=== PATIENT | female | born 1995 | race Caucasian/White ===

== ENCOUNTER 2017-11-20 18:27 | Emergency (ER) | payer BC ==
[2017-11-20 20:28] VITALS: BP 119/70
--- NOTE | 2017-11-20 20:37 | UC ---
Complaint Female HPI - HPI Summary HPI Summary: 22 y/o female presents to the urgent care requesting STD's screening. Pt states she takes OCP, but last weekend she had an unprotected sexual intercourse and is concerned w/ STD's. Pt has mild vaginal discharge, but denies itchiness, burning, pelvic pain, lower mark pain, urinary symptoms, abdominal pain, N/v/D. No Hx of STD's in the past. - History Of Current Complaint Chief Complaint: UCSTDScreening Stated Complaint: STD TESTING Time Seen by Provider: 11/20/17 20:33 Hx Obtained From: Patient Hx Last Menstrual Period: 10/30/17 ?: No Onset/Duration: Gradual Onset, Lasting Days - 5 days, Still Present Timing: Constant Severity Initially: Mild Severity Currently: Mild Pain Intensity: 0 Pain Scale Used: 0-10 Numeric Character: Not Applicable Aggravating Factor(s): Nothing Associated Signs And Symptoms: Positive: Vaginal Discharge. Negative: Fever, Back Pain, Vaginal Bleeding/Discharge, Genital Swelling, Genital Blisters - Risk Factors Ectopic Risk Factor: Negative Ovarian Torsion Risk Factor: Negative - Allergies/Home Medications Allergies/Adverse Reactions: Allergies Allergy/AdvReac Type Severity Reaction Status Date / Time No Known Allergies Allergy Verified 11/20/17 20:28 PMH/Surg Hx/FS Hx/Imm Hx Previously Healthy: Yes - Pt deneis PMHX - Surgical History Surgical History: None - Family History Known Family History: Positive: Respiratory Disease - Asthma - Social History Occupation: Employed Full-time Lives: With Family Alcohol Use: Occasionally Substance Use Type: None Smoking Status (MU): Never Smoked Tobacco Review of Systems Constitutional: Negative Skin: Negative Eyes: Negative ENT: Negative Respiratory: Negative Cardiovascular: Negative Gastrointestinal: Negative Genitourinary: Vaginal/Penile Discharge - white Motor: Negative Neurovascular: Negative Musculoskeletal: Negative Neurological: Negative Psychological: Negative Is Patient Immunocompromised?: No All Other Systems Reviewed And Are Negative: Yes Physical Exam - Summary Physical Exam Summary: Vital signs: reviewed General: well developed, well nourished female sitting in the examining table w /o any acute distress. Head: Normocephalic, no lesions. Eyes: PERRLA, EOM's full, conjunctiva clear, fundi grossly normal. Ears: EAC's clear, TM's normal. Nose: Mucosa normal, no obstruction. Throat: Clear, no exudates, no lesions. Neck: Supple, no masses, no thyromegaly, no bruits. Chest: Lungs clear, no rales, no rhonchi, no wheezes. Heart: RR, no murmurs, no rubs, no gallops. Abdomen: Soft, no tenderness, no masses, BS normal. : Normal, no lesions, no discharge, no hernias noted. Pelvic: I was assisted by nurse Tierney. External genitalia within normal limits. There is no lesions there is no masses noted. Speculum exam: The vaginal neal are within normal limits w/ moderate white cottage cheese vaginal discharge, no the lesions or rashes. The cervix is closed with no lesions or masses. There is no CMT's, and no adnexal masses. Sample sent to Lab for G/C and Affirm panel. Rectal: No lesions, no hemorrhoids, Back: Normal curvature, no tenderness. Extremities: FROM, no deformities, no edema, no erythema. Neuro: Physiological, no localizing findings. Skin: Normal, no rashes, no lesions noted. Triage Information Reviewed: Yes Vital Signs: Initial Vital Signs Temp 99.2 F 11/20/17 20:24 Pulse 54 11/20/17 20:24 Resp 16 11/20/17 20:24 BP 119/70 11/20/17 20:24 Pulse Ox 100 11/20/17 20:24 Complaint Female Dx - Course Course Of Treatment: 22 y/o female presents to the urgent care requesting STD's screening. Pt states she takes OCP, but last weekend she had an unprotected sexual intercourse and is concerned w/ STD's. Pt has mild vaginal discharge, but denies itchiness, burning, pelvic pain, lower mark pain, urinary symptoms, abdominal pain, N/v/D. No Hx of STD's in the past.Hx obtained. Pt w/ probably vulvovaginal candidiasis on pelvic examination. Pt given at the clinic Fluconazole PO. Sample sent to Lab for G/C, trichomonas and affirm panel. Pt educated on STD's and protection. Advised she will be notified if any abnormal result from lab. Pt understood and agreed with plan of care. - Differential Dx/Diagnosis Differential Diagnosis/HQI/PQRI: Cervicitis, Pelvic Inflammatory Disease, Sexually Transmitted Disease, Other - vaginosis Provider Diagnoses: 1- Vulvovaginal candidiasis. 2-Screening for STD's Discharge - Sign-Out/Discharge Documenting (check all that apply): Discharge - Discharge Plan Condition: Stable Disposition: HOME Patient Education Materials: Sexually Transmitted Diseases (ED), Yeast Infection (ED) Referrals: Em John MD [Primary Care Provider] - 1 Week Additional Instructions: 1-Please f/u with [facility] for a PAP as soon as possible. 2- Tx for candidiasis given tonight at the clinic.. 3- Specimen were sent to lab, if anything abnormal you will receive a call from us for further treatment. - Billing Disposition and Condition Condition: STABLE Disposition: HOME
[2017-11-20] MEDS ORDERED: Fluconazole 100 MG TAB* TAB PO ONE (20:57)
== END 2017-11-20 21:14 | disposition home or self-care (01) ==
LOC: UCCORT 18:27
DX: Z11.3 Encounter for screening for infections with a predominantly sexual mode of transmission (principal); B37.3 Candidiasis of vulva and vagina
CPT/HCPCS: 87480; 87491; 87510; 87591; 87661; 99212; A9270-GY; G0463

== ENCOUNTER 2018-01-30 17:03 | Emergency (ER) | payer BC ==
[2018-01-30 17:34] VITALS: BP 126/78
--- NOTE | 2018-01-30 17:49 | ED ---
Lower Extremity - HPI Summary HPI Summary: 22 yr old female with the complaint of left knee, posterior knee and calf pain. Associated with some swelling. Onset about 8 days ago. She was walking, felt a pop and pain in the knee, and locking sensation. She applied a knee brace. 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 She has pain and swelling in the left calf, knee, posterior knee now. Denies fever, chills, SOB, chest pain She is 8 months . She denies falls, direct trauma or other injuries to the left leg other than the spontaneous pain in knee when walking. - History of Current Complaint Chief Complaint: UCGeneralIllness Stated Complaint: FEVER/ST Time Seen by Provider: 01/30/18 17:39 Hx Last Menstrual Period: 01/24/18 Pain Intensity: 8 - Allergies/Home Medications Allergies/Adverse Reactions: Allergies Allergy/AdvReac Type Severity Reaction Status Date / Time No Known Allergies Allergy Verified 01/30/18 17:34 PMH/Surg Hx/FS Hx/Imm Hx Infectious Disease History: No Infectious Disease History: Denies: Traveled Outside the [place] in Last 30 Days - Family History Known Family History: Positive: None, Respiratory Disease - Asthma - Social History Alcohol Use: Occasionally Substance Use Type: Reports: None Smoking Status (MU): Never Smoked Tobacco Review of Systems Positive: Edema, Other - pain knee Physical Exam Triage Information Reviewed: Yes Vital Signs On Initial Exam: Initial Vitals Temp Pulse Resp BP Pulse Ox 100.2 F 99 16 126/78 100 01/30/18 17:29 01/30/18 17:29 01/30/18 17:29 01/30/18 17:29 01/30/18 17:29 Vital Signs Reviewed: Yes Appearance: Positive: Well-Appearing, No Pain Distress Skin: Positive: Skin Color Reflects Adequate Perfusion Head/Face: Positive: Normal Head/Face Inspection Eyes: Positive: EOMI Diagnostics - Vital Signs Vital Signs Temp Pulse Resp BP Pulse Ox 01/30/18 17:29 100.2 F 99 16 126/78 100 - Laboratory Lab Statement: Any lab studies that have been ordered have been reviewed, and results considered in the medical decision making process. Discharge - Discharge Plan Referrals: Em John MD [Primary Care Provider] -
--- NOTE | 2018-01-30 18:07 | ED ---
Throat Pain/Nasal Congestion - HPI Summary HPI Summary: 22 yr old with sore throat for four days, fever, chills. She has had strep throat before. Denies drooling or change in voice. No other complaints. No NV. No allergies to meds. - History of Current Complaint Chief Complaint: UCGeneralIllness Time Seen by Provider: 01/30/18 17:39 - Allergies/Home Medications Allergies/Adverse Reactions: Allergies Allergy/AdvReac Type Severity Reaction Status Date / Time No Known Allergies Allergy Verified 01/30/18 17:34 PMH/Surg Hx/FS Hx/Imm Hx Infectious Disease History: No Infectious Disease History: Denies: Traveled Outside the [place] in Last 30 Days - Family History Known Family History: Positive: None, Respiratory Disease - Asthma - Social History Alcohol Use: Occasionally Substance Use Type: Reports: None Smoking Status (MU): Never Smoked Tobacco Review of Systems Positive: Fever Positive: Sore Throat All Other Systems Reviewed And Are Negative: Yes Physical Exam Triage Information Reviewed: Yes Vital Signs On Initial Exam: Initial Vitals Temp Pulse Resp BP Pulse Ox 100.2 F 99 16 126/78 100 01/30/18 17:29 01/30/18 17:29 01/30/18 17:29 01/30/18 17:29 01/30/18 17:29 Vital Signs Reviewed: Yes Appearance: Positive: Well-Appearing, No Pain Distress Skin: Positive: Warm, Skin Color Reflects Adequate Perfusion Head/Face: Positive: Normal Head/Face Inspection Eyes: Positive: EOMI ENT: Positive: Pharyngeal erythema Neck: Positive: Supple, Nontender, Enlarged Nodes @ - anterior superior cervical Respiratory/Lung Sounds: Positive: Clear to Auscultation, Breath Sounds Present Cardiovascular: Positive: RRR. Negative: Murmur Abdomen Description: Negative: Distended Musculoskeletal: Positive: Strength/ROM Intact Neurological: Positive: Sensory/Motor Intact, Alert, Oriented to Person Place, Time, CN Intact II-III Psychiatric: Positive: Normal - Toni Coma Scale Best Eye Response: 4 - Spontaneous Best Motor Response: 6 - Obeys Commands Best Verbal Response: 5 - Oriented Coma Scale Total: 15 Diagnostics - Vital Signs Vital Signs Temp Pulse Resp BP Pulse Ox 01/30/18 17:29 100.2 F 99 16 126/78 100 - Laboratory Lab Results: Lab Results 01/30/18 Range/Units 17:41 Group A Strep Rapid Positive A (Negative) Lab Statement: Any lab studies that have been ordered have been reviewed, and results considered in the medical decision making process. EENT Course/Dx - Course Course Of Treatment: 22 yr old with strep pharyngitis. Rx amox. - Diagnoses Provider Diagnoses: Strep pharyngitis Discharge - Sign-Out/Discharge Documenting (check all that apply): Discharge/Admit/Transfer - Discharge Plan Condition: Good Disposition: HOME Prescriptions: Amoxicillin PO (*) [Amoxicillin 500 MG CAP*] 500 mg PO TID #30 cap Patient Education Materials: Strep Throat (ED) Referrals: Em John MD [Primary Care Provider] - 2 Days - Billing Disposition and Condition Condition: GOOD Disposition: HOME
== END 2018-01-30 18:12 | disposition home or self-care (01) ==
LOC: UCCORT 17:03
DX: J02.0 Streptococcal pharyngitis (principal)
CPT/HCPCS: 87651; 99212; G0463